=== PATIENT | female | born 1985 | race Caucasian/White ===

== ENCOUNTER 2023-05-02 08:30 | Inpatient (IN) | payer OTHER ==
[2023-05-02] MEDS ORDERED: DINOPROSTONE 10 MG VAGINAL SUPPOSITORY VG ONE ×2 (09:26→09:30)
[2023-05-02 09:49] VITALS: BMI 28.8
[2023-05-02 10:10] LABS: BASO % 0.6 % (0-2.0); EOS % 1.5 % (0-4.5); HEMATOCRIT 37.4 % (32.4-45.2); HEMOGLOBIN 12.4 GM/dL (10.7-15.3); LYMPH % 32.9 % (8-40); MCH 30.4 pg (25.7-33.7); MCHC 33.3 g/dl (32.0-36.0); MEAN CELL VOLUME 91.4 fl (80-96); MEAN PLT VOLUME 9.4 fl (7.5-11.1); MONO % 10.6 % (3.8-10.2); NEUT % 54.4 % (42.8-82.8); PLATELET COUNT 243 10^3/uL (134-434); RBC 4.09 M/mm3 (3.60-5.2); RDW 13.8 % (11.6-15.6); WHITE BLOOD COUNT 6.5 K/mm3 (4.0-10.0)
[2023-05-02 10:16] LABS: INR 0.97 (0.83-1.09); PROTHROMBIN TIME (PATIENT) 11.2 SEC (9.7-13.0)
[2023-05-02 10:19] LABS: ACTIVATED PTT 25.9 SECONDS (25.2-36.5)
[2023-05-02 10:32] LABS: POTASSIUM 4.2 mmol/L (3.5-5.1)
[2023-05-02 10:33] LABS: CALCIUM 9.3 mg/dL (8.5-10.1)
[2023-05-02 10:34] LABS: BLOOD UREA NITROGEN 6.6 mg/dL (7-18)
[2023-05-02 10:37] LABS: CREATININE 0.5 mg/dL (0.55-1.3)
[2023-05-02] MEDS ORDERED: ELECTROLYTE-148 SOLN 1,000 ML IV SCH (12:45)
[2023-05-02] MEDS ORDERED: AMPICILLIN SODIUM 2 GM VIAL ONE (15:34)
[2023-05-02] MEDS ORDERED: AMPICILLIN - 2 GM in SODIUM CHLORIDE 100 ML IVPB ONE ×2 (15:40→16:00)
[2023-05-02] MEDS ORDERED: AMPICILLIN - 1 GM in SODIUM CHLORIDE 100 ML IVPB SCH ×2 (16:00→20:00)
[2023-05-02] MEDS ORDERED: AMPICILLIN SODIUM 1 GM VIAL ONE (20:03)
[2023-05-02] MEDS ORDERED: SODIUM CHLORIDE 100 ML IVPB ONE (20:03)
[2023-05-02] MEDS ORDERED: TERBUTALINE SULFATE 1 MG/1 ML VIAL SQ ONE ×2 (21:48→21:50)
[2023-05-02] MEDS ORDERED: ELECTROLYTE-148 SOLN 500 ML IV ONE ×2 (22:00→22:30)
[2023-05-02] MEDS ORDERED: PROPOFOL 40 ML ONE (22:19)
[2023-05-02] MEDS ORDERED: SUCCINYLCHOLINE CHLORIDE 200 MG/10 ML SYRINGE ONE (22:19)
[2023-05-02] MEDS ORDERED: FENTANYL CITRATE/PF 50 MCG/ML VIAL ONE (22:20)
[2023-05-02] MEDS ORDERED: CITRIC ACID/SODIUM CITRATE 30 ML UNIT-DOSE CUP PO ONE (22:30)
[2023-05-02] MEDS ORDERED: ACETAMINOPHEN 325 MG TABLET (FP) PO PRN (23:25)
[2023-05-02] MEDS ORDERED: IBUPROFEN 800 MG/8 ML IJ IVPB PRN (23:25)
[2023-05-02] MEDS ORDERED: METHYLERGONOVINE MALEATE 0.2 MG/1 ML AMP IM PRN (23:25)
[2023-05-03] MEDS ORDERED: OXYTOCIN 20 UNITS in 0.9% NS 20 UNIT/1,000 ML INFUS.BAG IV ONE (00:46)
[2023-05-03] MEDS: OXYTOCIN 20 UNITS in 0.9% NS 20 UNIT/1,000 ML INFUS.BAG IV SCH ×2 (00:48→15:04)
[2023-05-03 01:05] LABS: CORD HCO3 21.1 mmHg (20-29); CORD PCO2 62.7 mmHg (30-78); CORD pH 7.145 (7.14-7.44)
[2023-05-03 08:34] LABS: BASO % 0.1 % (0-2.0); EOS % 0.5 % (0-4.5); HEMATOCRIT 35.8 % (32.4-45.2); HEMOGLOBIN 12.1 GM/dL (10.7-15.3); LYMPH % 14.6 % (8-40); MCH 30.7 pg (25.7-33.7); MCHC 33.9 g/dl (32.0-36.0); MEAN CELL VOLUME 90.7 fl (80-96); MEAN PLT VOLUME 9.1 fl (7.5-11.1); MONO % 10.4 % (3.8-10.2); NEUT % 74.4 % (42.8-82.8); PLATELET COUNT 224 10^3/uL (134-434); RBC 3.95 M/mm3 (3.60-5.2); RDW 13.7 % (11.6-15.6); WHITE BLOOD COUNT 10.2 K/mm3 (4.0-10.0)
[2023-05-03] MEDS: PRENATAL VITAMINS W/ FOLIC ACID TABLET (FP) PO SCH (10:37)
[2023-05-03] MEDS: FERROUS SO4 325 MG TABLET (FP) PO SCH ×2 (10:37→22:35)
[2023-05-03] MEDS: SIMETHICONE 80 MG TAB.CHEW (FP) PO PRN ×3 (10:38→20:53)
[2023-05-03] MEDS ORDERED: oxyCODONE HCL 5 MG TABLET PO PRN (11:25)
[2023-05-03] MEDS: IBUPROFEN 600 MG TABLET (FP) PO PRN ×2 (15:03→20:53)
[2023-05-03] MEDS ORDERED: BISACODYL 10 MG SUPP.RECT RC PRN (23:25)
[2023-05-04] MEDS: FERROUS SO4 325 MG TABLET (FP) PO SCH ×2 (09:52→22:21)
[2023-05-04] MEDS: SIMETHICONE 80 MG TAB.CHEW (FP) PO PRN (09:52)
[2023-05-04] MEDS: IBUPROFEN 600 MG TABLET (FP) PO PRN ×2 (09:52→22:21)
[2023-05-04] MEDS: PRENATAL VITAMINS W/ FOLIC ACID TABLET (FP) PO SCH (09:52)
[2023-05-05 07:22] LABS: BASO % 0.4 % (0-2.0); EOS % 3.2 % (0-4.5); HEMOGLOBIN 11.9 GM/dL (10.7-15.3); LYMPH % 27.8 % (8-40); MCH 30.6 pg (25.7-33.7); MCHC 33.1 g/dl (32.0-36.0); MEAN CELL VOLUME 92.3 fl (80-96); MEAN PLT VOLUME 9.1 fl (7.5-11.1); MONO % 8.5 % (3.8-10.2); NEUT % 60.1 % (42.8-82.8); PLATELET COUNT 285 10^3/uL (134-434); RBC 3.89 M/mm3 (3.60-5.2); RDW 13.6 % (11.6-15.6)
[2023-05-05 10:06] VITALS: BP 105/75; PULSE 87; RESP 18; TEMP 98.5
[2023-05-05] MEDS: IBUPROFEN 600 MG TABLET (FP) PO PRN (10:16)
[2023-05-05] MEDS: SIMETHICONE 80 MG TAB.CHEW (FP) PO PRN (10:16)
[2023-05-05] MEDS: FERROUS SO4 325 MG TABLET (FP) PO SCH (10:16)
[2023-05-05] MEDS: PRENATAL VITAMINS W/ FOLIC ACID TABLET (FP) PO SCH (10:16)
== END 2023-05-05 15:40 | disposition home or self-care (01) | DRG 540 ==
LOC: JLDR 08:30 → J3W 05-03 01:13
PROVIDERS: ADMIT Obstetrics & Gynecology; ATTEND Obstetrics & Gynecology
PROC: 10D00Z1 Extraction of Products of Conception, Low, Open Approach (ICD-10-PCS; principal; 2023-05-02)
DX: O48.0 Post-term pregnancy (principal); O76 Abnormality in fetal heart rate and rhythm complicating labor and delivery; Z3A.40 40 weeks gestation of pregnancy; O77.0 Labor and delivery complicated by meconium in amniotic fluid; Z37.0 Single live birth
CPT/HCPCS: 36415; 36600; 71046-TC-FY; 80048; 82803; 85025; 85610; 85730; 86780; 86850; 86900; 86901; 88307-TC